=== PATIENT | male | born 1960 | race Caucasian/White ===

== ENCOUNTER → 2016-12-01 | Day surgery (SDC) | payer BC ==
[~2016-12-01] MED LIST: BUPIVACAINE/EPINEPHRINE 0.25% PF 30 ML VIAL ONE; FLUMAZENIL 1 MG/10 ML VIAL IV ONE; KETOROLAC TROMETHAMINE 30 MG/ML (IVP) VIAL IV PUSH ONE; LACTATED RINGER'S 1000 ML INJ 1,000 ML ONE; MIDAZOLAM HCL 2 MG/2 ML VIAL ONE; ONDANSETRON HCL 4 MG/2 ML VIAL IV PUSH ONE; PROPOFOL 200 MG/20 ML AMP IV ONE; ceFAZolin 2 GM PREMIX 50 ML ONE
--- NOTE | 2016-12-01 10:48 | TN ---
cc: MARCO DAVID M.D. DATE OF SURGERY: 12/01/2016 PREOPERATIVE DIAGNOSIS 1. Symptomatic left inguinal hernia. 2. Status post laparoscopic right inguinal hernia repair. POSTOPERATIVE DIAGNOSIS 1. Symptomatic left inguinal hernia. 2. Indirect left inguinal hernia. PROCEDURE PERFORMED Laparoscopic left inguinal hernia pair with mesh. SURGEON Marco David ANESTHESIA General LMA COMPLICATIONS None. INDICATION FOR PROCEDURE: Mr. Cano is a pleasant 55-year-old gentleman who had a symptomatic left inguinal bulge. He has seen, evaluated, found to have an obvious left inguinal hernia. Surgical history is remarkable for undergoing a laparoscopic right inguinal hernia repair several years ago. He was offered another laparoscopic repair as there was no dissection done on the left side. Risks and benefits of the procedure was discussed with him and he was agreeable. Details the patient was identified by the operating room placed supine on the table. After adequate general anesthesia achieved LMA the anterior abdomen and groin was prepped and draped in standard surgical fashion. Infraumbilical space anesthetized with 0.25% Marcaine. Infraumbilical incision was made. Dissection was carried down subcutaneous tissue to the anterior rectus fascia. Anterior rectus fascia was then incised vertically off the midline. Rectus muscles then retracted laterally. Preperitoneal space was entered blunt dissection. Blunt dissecting balloon was then inserted down to the left side of the pelvis and gently insufflated with 15 pumps of air under direct vision. Balloon dissector was then removed and balloon trocar inserted. Preperitoneal space insufflated to 11 mm using CO2 gas. Next two 5 mm trocars were placed in the lower midline under direct vision. Attention was directed to the left lower quadrant of the pelvis where the cord structures was seen exiting the internal ring. Traveling with the cord structures was a peritoneal sac indicating in the indirect inguinal hernia. The peritoneal sac was carefully grasped and dissected out of the inguinal canal using hand over hand technique. Once the hernia sac was dissected away from the internal ring over several centimeters a posterior window was then made behind the cord structures. There is no evidence of a direct inguinal hernia. A piece of polypropylene mesh was then inserted with a slit cut for the cord structures. Mesh was placed through the posterior window and then the slit reapproximated using the Pro tacking device. Internal ring was appropriately tightened. Mesh was then secured medially along Sky's ligament pubic tubercle and superiorly and posterior abdominal wall fascia. An onlay mesh was then placed over the slit in order to buttress it. This mesh was secured medially and laterally. With this the indirect and direct pulses spaces were well covered by mesh. 0.25% Marcaine was injected operative field. Inferior border the mesh was held down the peritoneum peritoneal sac was held up in the preperitoneal space was desufflated the peritoneum was found to roll up over the mesh again with excellent coverage of the indirect and direct spaces. All trocars removed under direct vision. The anterior rectus fascia was repaired with 0 Vicryl [id number] fashion. Skin was closed 4-0 Vicryl. The patient ought procedure well as awakened, brought to recovery in stable condition. This Marco MD GARDENIA David/demi /10:18 AM /10:32 AM
== END | disposition home or self-care (01) ==
LOC: ESDC 07:41
PROVIDERS: ATTEND Surgery Trauma Surgery
DX: K40.90 Unilateral inguinal hernia, without obstruction or gangrene, not specified as recurrent (principal)
CPT/HCPCS: 00840; 49650; C1727; C1781; J0690; J1885; J2250; J2405; J3010; J7120